=== PATIENT | female | born 1945 | race Caucasian/White ===

== ENCOUNTER → 2017-04-23 | Outpatient (CLI) | payer MEDICARE, OTHER ==
[~2017-04-23] MED LIST: ALEN70TA5 PO; CALC-451 PO; CHOL200074 PO; DOXE10CA PO; FLUT16SP NS; LACT1CAP40 PO; MAGNESIUM PO; OMEP-110 PO; SOTA80TA PO; SUMA100T4 PO; VITAMIN B12 PO
== END | disposition home or self-care (01) ==
LOC: ROC 12:37
PROVIDERS: ATTEND Radiology Radiation Oncology
DX: C50.911 Malignant neoplasm of unspecified site of right female breast (principal)
CPT/HCPCS: G0463

== ENCOUNTER → 2017-10-08 | Outpatient (CLI) | payer MEDICARE, OTHER | END | disposition home or self-care (01) | LOC: ROC 10:16 | PROVIDERS: ATTEND Radiology Radiation Oncology | DX: C50.211 Malignant neoplasm of upper-inner quadrant of right female breast (principal) | CPT/HCPCS: G0463 ==

== ENCOUNTER → 2018-04-09 | Outpatient (CLI) | payer MEDICARE, OTHER | END | disposition home or self-care (01) | LOC: ROC 07:18 | PROVIDERS: ATTEND Radiology Radiation Oncology | DX: Z08 Encounter for follow-up examination after completed treatment for malignant neoplasm (principal); C50.211 Malignant neoplasm of upper-inner quadrant of right female breast | CPT/HCPCS: G0463 ==

== ENCOUNTER → 2020-03-15 | Outpatient (CLI) | payer MEDICARE, OTHER ==
[~2020-03-15] MED LIST changes: -ALEN70TA5 PO; +ALEN70TA6 PO; -FLUT16SP NS; +FLUT16SP24 NS
== END | disposition home or self-care (01) ==
LOC: ROC 08:58
PROVIDERS: ATTEND Radiology Radiation Oncology
DX: C50.911 Malignant neoplasm of unspecified site of right female breast (principal)
CPT/HCPCS: G0463